=== PATIENT | female | born 1950 | race Caucasian/White ===

== ENCOUNTER → 2018-12-31 | Outpatient (CLI) | payer MEDICARE ==
[2018-12-31 13:24] LABS: BASO # 0.1 10^3/uL (0.0-0.2); BASO % 0.6 % (0.0-1.0); EOS # 0.2 10^3/uL (0.0-0.50); EOS % 1.2 % (0.0-3.0); HEMOGLOBIN 14.2 g/dl (12.0-15.5); LYMPH # 3.1 10^3/uL (1.5-4.5); LYMPH % 21.3 % (24.0-44.0); MEAN CORPUSCULAR HEMOGLOBIN 26.6 pg (27.0-33.0); MEAN CORPUSCULAR HGB CONC 30.9 g/dl (32.0-36.5); MEAN CORPUSCULAR VOLUME 86.3 fl (80.0-96.0); MONO % 7.1 % (0.0-5.0); NEUTROPHILS # 10.2 10^3/uL (1.8-7.7); NEUTROPHILS % 69.1 % (36.0-66.0); PLATELET COUNT, AUTOMATED 646 10^3/uL (150-450); RED BLOOD COUNT 5.33 10^6/uL (4.00-5.40); WHITE BLOOD COUNT 14.7 10^3/uL (4.0-10.0)
[2018-12-31 13:43] LABS: IMMUNOGLOBULIN M 55.3 MG/DL (40-230)
[2019-01-05 00:06] LABS: A1A FOR PHENOTYPE 266 mg/dL (90-200); ASPERGILLUS FLAVUS ABY Negative (Neg:<1:1); ASPERGILLUS FUMIGATUS ABY Negative (Neg:<1:1); ASPERGILLUS NIGER ABY Negative (Neg:<1:1)
== END ==
LOC: M SMT 10:42
PROVIDERS: ATTEND Internal Medicine Pulmonary Disease
DX: R91.8 Other nonspecific abnormal finding of lung field (principal)

== ENCOUNTER 2019-02-10 10:07 | Day surgery (SDC) | payer MEDICARE ==
[2019-02-10] VITALS (7 sets, daily range): BP systolic 87–98; BP diastolic 48–58; O2SAT 98–100
[~2019-02-10] VITALS: Ht 144.8 cm; Wt 38.1 kg
[~2019-02-10 10:07] MED LIST: ALEN70TA74 PO; ANOR1AER IN; BACL10TA2 PO; CALC600C3 PO; EZET10TA21 PO; FLUO20CA19 PO; HYDR200T3 PO; LEVO50TA5 PO; LR 1,000 ML IV ONE; MOBI4TAB PO; NEUR300C PO; WELL1000 PO
[2019-02-10] MEDS ORDERED: PARO30TA3 PO (11:05)
[2019-02-10] MEDS ORDERED: THROMBIN SOLN 20,000 UNITS KIT As Ordered ONE (11:39)
[2019-02-10] MEDS ORDERED: LIDOCAINE 4% TOPICAL SOLN 50 ML BTL As Ordered ONE (11:40)
[2019-02-10] MEDS ORDERED: LIDOCAINE 1% SDV INJ 30 ML VIAL As Ordered ONE (11:40)
[2019-02-10] MEDS ORDERED: CETACAINE SPRAY 5GM As Ordered ONE (11:40)
[2019-02-10] MEDS ORDERED: LIDOCAINE VISCOUS 2% SOLN 15ML UDC As Ordered ONE (11:40)
[2019-02-10] MEDS ORDERED: EPINEPHrine INJ 1 MG/ML 1ML AMP As Ordered ONE (11:40)
[2019-02-10] MEDS ORDERED: ONDANSETRON 4MG/2ML VIAL (J2405) As Ordered ONE (12:10)
[2019-02-10] MEDS ORDERED: ROCURONIUM BROMIDE 50 MG/5 ML VIAL As Ordered ONE (12:10)
[2019-02-10] MEDS ORDERED: fentaNYL 250 MCG/5 ML INJECTION (J3010) As Ordered ONE (12:10)
[2019-02-10] MEDS ORDERED: dexameTHASONE 4 MG/ML 1ML VIAL (J1100) As Ordered ONE (12:10)
[2019-02-10] MEDS ORDERED: PROPOFOL 200 MG/20 ML VIAL As Ordered ONE (12:10)
[2019-02-10] MEDS ORDERED: SUGAMMADEX SODIUM 500 MG/5 ML VIAL (BRIDION) As Ordered ONE (12:10)
[2019-02-10] MEDS ORDERED: MIDAZOLAM INJ 2 MG/2 ML VIAL (J2250) As Ordered ONE (12:10)
[2019-02-10] MEDS ORDERED: LIDOCAINE 2% INJ 100 MG/5 ML SDV (FOR ANES.) As Ordered ONE (12:10)
[2019-02-10] MEDS ORDERED: PHENYLephrine HCL 500 MCG/5 ML (100MCG/ML) SYRINGE (J2370) As Ordered ONE ×2 (12:11→12:20)
[2019-02-10] MEDS ORDERED: ePHEDrine SULFATE 25 MG/5 ML(5MG/ML) SYRINGE As Ordered ONE (12:11)
[2019-02-10] MEDS ORDERED: METOCLOPRAMIDE INJ 10MG/2ML VIAL (J2765) IV PRN (13:00)
[2019-02-10] MEDS ORDERED: LR 1,000 ML IV SCH (13:00)
[2019-02-10] MEDS ORDERED: fentaNYL 100 MCG/2 ML INJECTION (J3010) IV PRN (13:00)
[2019-02-10] MEDS ORDERED: ONDANSETRON 4MG/2ML VIAL (J2405) IV PRN (13:00)
[2019-02-10] MEDS ORDERED: PERCOCET 5MG/325MG TAB PO PRN (13:00)
--- NOTE | 2019-02-10 13:16 | RO ---
DATE OF PROCEDURE: 02/10/2019 PREOPERATIVE DIAGNOSES: Abnormal chest CT, bronchiectasis with likely rapid massive progressive fibrosis. POSTOPERATIVE DIAGNOSES: Abnormal chest CT, bronchiectasis with likely rapid massive progressive fibrosis. FINDINGS: Bronchiectatic airway. PROCEDURE: Bronchoscopy with transbronchial biopsies. PROCEDURALIST: Chris Ruvalcaba DO RESEARCH LABORATORY MANAGER: ANESTHESIA: General. Please refer to their records for details. SPECIMENS OBTAINED: 1. BAL of the right middle lobe, the superior basal segment of the right lower lobe and the lateral basal segment of the right lower lobe. 2. Transbronchial biopsies right upper lobe apical anterior and posterior segments, right middle lobe lateral and medial segments, right lower lobe superior basal, anterior lateral and posterior basal segments. No observed complications. ESTIMATED BLOOD LOSS: 5 mL. DESCRIPTION OF PROCEDURE: After informed consent was reviewed with the patient in the preoperative area, she was brought back to OR number 3. Anesthesia was initiated with an 8.5 endotracheal tube and the case was handed over to me. Time out was performed with two patient identifiers, confirming correct site, correct procedure. Cetacaine spray was used to anesthetize the airway and provide lubrication for the 1T190 bronchoscope. This was inserted into the trachea. Trachea was midline. Ophelia was sharp. There were minimal amounts of clear to white mucus in the airways. There was no thick or tenacious mucus. The right mainstem bronchus was normal except for banding. RB 1 through 3 had anatomic variation with the apical and anterior segments coming off together. There were no endobronchial lesions but there was significant banding and pitting. Right middle lobe RB 4 and 5 was normal without endobronchial lesions. There was pitting and banding. Superior basal and medial basal segments were normal without endobronchial lesions. RB 6 through 10 were normal after complete exam. The bronchoscope was then retracted into the left mainstem which was also normal. There was bronchiectatic segments on the left also. Quite a bit of banding and pitting. LB 1 through 10 was inspected and without endobronchial lesions. The bronchoscope was then inserted into the right middle lobe and bronchoalveolar lavage was performed with cloudy return of 30 mL. This was repeated in the superior basal segment and the lateral basal segment of the right lower lobe. I then performed transbronchial biopsies under fluoroscopy of the right middle lobe followed by the superior basal segment, medial basal segments, anterior lateral and posterior segments of the right lower lobe. In the right upper lobe, there was such fibrosis that the transbronchial biopsies did not extend very far. However, biopsies were taken of this area. After all biopsies were taken, hemostasis was assured. There was no evidence of ongoing bleeding. Bronchoscope was removed. Case was handed back over to anesthesia. Postprocedure chest x-ray is pending.
--- NOTE | 2019-02-10 13:19 | REP ---
Portable chest x-ray: Sitting AP view. History: Post bronchoscopic evaluation. No comparison imaging. Findings: There is extensive retraction, consolidation and volume loss the upper lobes bilaterally. Biapical pleural thickening is seen. There is an interstitial fibrosis pattern diffusely most pronounced in the bases. There is slight blunting of the right lateral pleural angle. There is no evidence of pneumothorax. Heart is not enlarged. Impression: No evidence of pneumothorax. Electronically Signed by Valdez Esparza MD 02/10/2019 01:10 P
[2019-02-10] MEDS ORDERED: LEVALBUTEROL 1.25 MG/0.5 ML CONCENTRATE NEB As Ordered ONE (13:41)
[2019-02-10] MEDS ORDERED: LEVALBUTEROL 1.25 MG/0.5 ML CONCENTRATE NEB INH ONE ×2 (14:00→15:00)
[2019-02-10 14:07] LABS: COLOR COLORLESS (COLORLESS); SOURCE BRON ALVEOLAR LAVAGE
[2019-02-10 14:08] LABS: APPEARANCE CLOUDY (CLEAR)
[2019-02-10] MEDS ORDERED: FUROSEMIDE 20 MG/2 ML VIAL (J1940) As Ordered ONE (15:57)
[2019-02-10 16:18] LABS: MONOCYTES/MACROPHAGES, BAL 4 %
[2019-02-10 16:33] LABS: ABG BASE EXCESS -0.5 (-2.0-2.0); ABG HCO3 26.7 MEQ/L (22.0-26.0); ABG O2 SATURATION 74.6 % (95.0-99.0); ABG PARTIAL PRESSURE CO2 55.3 mmHg (35.0-45.0); ABG STANDARD HCO3 23.6 MEQ/L (22.0-26.0); ABG TOTAL CO2 28.4 MEQ/L (23.0-31.0); ABG pH (ARTERIAL) 7.302 UNITS (7.350-7.450)
[2019-02-10 16:49] LABS: ABG PARTIAL PRESSURE O2 41.2 mmHg (75.0-100.0)
--- NOTE | 2019-02-10 16:55 | REP ---
Portable chest, 04:30 p.m., single AP view with the patient upright: Comparison is F 12:46 p.m. earlier today. There is markedly advanced fibrosis and cystic changes throughout both lungs, focally worse in the lung apices bilaterally. There is pleural thickening over the lung apices bilaterally. These findings are unchanged. There is no pneumothorax. The costophrenic angles are opacified bilaterally. This is nonspecific and could be from the lung fibrosis, pleural adhesions or small pleural fluid collections. Impression: No change from the study earlier today. No pneumothorax. Markedly advanced fibrosis and cystic changes bilaterally, particularly in the lung apices. Electronically Signed by Kye Zapata MD 02/10/2019 04:46 P
[2019-02-10] MEDS ORDERED: FUROSEMIDE 20 MG/2 ML VIAL (J1940) IV ONE (17:00)
[2019-02-10] MEDS ORDERED: CLOPIDOGREL 75 MG TAB PO ONE (17:15)
[2019-02-10] MEDS: ALBUTEROL SULFATE 2.5 MG/0.5 ML INH NEB SOLN NEB SCH ×2 (20:17→23:45)
[2019-02-10] MEDS ORDERED: EZETIMIBE 10 MG TAB (ZETIA) PO SCH (21:00)
[2019-02-10] MEDS ORDERED: SIMVASTATIN 10 MG TAB PO SCH (21:00)
[2019-02-10] MEDS: GABAPENTIN 300 MG CAP PO SCH (21:06)
[2019-02-11] VITALS (14 sets, daily range): BP systolic 98–127; BP diastolic 58–59; O2SAT 88–100
[2019-02-11] MEDS: ALBUTEROL SULFATE 2.5 MG/0.5 ML INH NEB SOLN NEB SCH ×2 (03:44→07:17)
--- NOTE | 2019-02-11 03:59 | HPE ---
DATE OF ADMISSION: 02/10/2019 I was called multiple times during her postprocedure course. She continued to have hypoxia, which improved as her mentation improved. It was noted that immediately postoperative, she was quite sedated, was not ventilating well on her own, but was able to be aroused. Without oxygen, her oxygen saturations went to 60%. With oxygen, she remained in the 90s. After an hour of nebulizing, incentive spirometry, and lung recruitment maneuvers, her oxygen saturation to 83% on room air. This correlated with tachycardia. The patient herself states she feels fine. She feels that she is at her baseline. She has no headache. She denies any chest discomfort. After another hour of observation and lung recruitment maneuvers, patient still had oxygen desaturations with removal of oxygen; therefore, arterial blood gas was obtained. At the time the arterial blood gas was obtained, she was not on oxygen and her oxygen saturation on the probe was reading 73%. The arterial blood gas at that time showed a pH of 7.30, pCO2 of 55, and PaO2 of 41. After arterial blood gas was taken, the oxygen was immediately administered. Oxygen saturation improved to 99-100% on 2 liters, and she has been at that level since that time. She has known hypotension. Her blood pressure has been above her outpatient value of 84/62. She was given a dose of Lasix by the anesthesiologist. It was determined because of her hypoxia, hypercarbia to keep her for monitoring, although she states that she feels fine. I have, therefore, admitted here to the progressive care unit (PCU) for continued respiratory monitoring. I believe the cause of this is likely hypoventilation postprocedure and with lung recruitment patient will improve. PLAN: Monitoring overnight. Continued efforts towards lung maneuvers. I have informed the on-call physician of her prolonged surgical stay. Patient may require oxygen at home as she was close to requiring it at baseline. If she is in her baseline stable state at the time of discharge and her oxygen is less than 88%, will provide her with a prescription for oxygen at that point in time. MALIA
[2019-02-11] MEDS ORDERED: LEVOTHYROXINE 50MCG TABLET (0.05MG) PO SCH (06:00)
[2019-02-11 06:03] LABS: ALBUMIN 2.7 GM/DL (3.2-5.2); ALT/SGPT 136 U/L (12-78); BILIRUBIN,TOTAL 0.2 MG/DL (0.2-1.0); BLOOD UREA NITROGEN 21 MG/DL (7-18); CALCIUM LEVEL 7.9 MG/DL (8.8-10.2); CARBON DIOXIDE LEVEL 33 MEQ/L (21-32); CHLORIDE LEVEL 106 MEQ/L (98-107); CREATININE FOR GFR 0.78 MG/DL (0.55-1.30); GLOMERULAR FILTRATION RATE > 60.0 (>45); GLUCOSE, FASTING 123 MG/DL (70-100); POTASSIUM SERUM 3.9 MEQ/L (3.5-5.1); SODIUM LEVEL 143 MEQ/L (136-145); TOTAL PROTEIN 6.9 GM/DL (6.4-8.2)
[2019-02-11 06:13] LABS: ABG BASE EXCESS 2.5 (-2.0-2.0); ABG HCO3 29.4 MEQ/L (22.0-26.0); ABG O2 SATURATION 98.1 % (95.0-99.0); ABG PARTIAL PRESSURE CO2 56.7 mmHg (35.0-45.0); ABG PARTIAL PRESSURE O2 116.1 mmHg (75.0-100.0); ABG STANDARD HCO3 26.7 MEQ/L (22.0-26.0); ABG TOTAL CO2 31.1 MEQ/L (23.0-31.0); ABG pH (ARTERIAL) 7.332 UNITS (7.350-7.450)
[2019-02-11] MEDS: GABAPENTIN 300 MG CAP PO SCH (08:33)
[2019-02-11] MEDS ORDERED: PARoxetine 20 MG TAB PO SCH (09:00)
[2019-02-11] MEDS ORDERED: HYDROXYCHLOROQUINE 200 MG TAB PO SCH (09:00)
--- NOTE | 2019-02-11 10:04 | IPN ---
DATE OF VISIT: 02/11/2019 I saw Elaine Martinez here this morning. She feels well. She has no new complaints. She is eating and drinking well. T-max overnight 98.4, blood pressure 120 systolic, heart rate 79, with a sinus mechanism respiratory rate 16 to 18 without accessory muscle use. HEENT: Otherwise normocephalic, atraumatic. Pupils react. Neck: Supple. Trachea is midline. Chest shows diminished, but symmetric expansion. There are coarse expiratory crackles bilaterally with some egophony at the right apex. There is some moist inspiratory squeak, especially in the mid zones, right greater than left. Cardiac exam is regular without gallop, murmur or rub. Peripheral pulses palpable, no edema. Abdomen thin, soft and nontender with normoactive bowel sounds. No organomegaly or masses. Extremities: Without cyanosis or clubbing. Neurologic: She is awake, alert and appropriate. Psychiatric: Normal affect. Blood gas done this morning on 1 liter nasal cannula shows a pH of 7.332, pCO2 of 56.7, pO2 116.1. Sodium 143, potassium 3.9, chloride 106, CO2 33, BUN 21, creatinine 0.78. She was ambulating on room air and drops to 78%. On 1 liter, she drops to 87% to 88%, but on 2 liters nasal cannula, stays at 91-93%. Oxygen was ordered yesterday through [facility]. IMPRESSION: 1. Hypoxemic respiratory failure. 2. Diffuse interstitial disease status post bronchoscopy yesterday. 3. Bronchiectasis. RECOMMENDATIONS: At this point, she is stable for discharge. She was a 23-hour observation. In talking further with her, my suspicion is she has probably has had issues longer at home than she was willing to admit, especially in view of her baseline CO2 retention. At this point, will continue her home regimen. It is arranged for 2 liters nasal cannula oxygen to be worn with any activity and with sleep. She has a scheduled appointment with Dr. Ruvalcaba in the office next week for results of her bronchoscopy.
== END 2019-02-11 13:06 | disposition home or self-care (01) ==
LOC: M SDC 10:07 → M PCU 17:28 → M SDC 02-11 13:06
PROVIDERS: ATTEND Internal Medicine Pulmonary Disease
DX: R91.8 Other nonspecific abnormal finding of lung field (principal); J47.9 Bronchiectasis, uncomplicated; J84.10 Pulmonary fibrosis, unspecified; I10 Essential (primary) hypertension; E03.9 Hypothyroidism, unspecified; K58.9 Irritable bowel syndrome, unspecified; M81.0 Age-related osteoporosis without current pathological fracture; M50.30 Other cervical disc degeneration, unspecified cervical region; M19.90 Unspecified osteoarthritis, unspecified site; F17.210 Nicotine dependence, cigarettes, uncomplicated; R01.1 Cardiac murmur, unspecified; Z79.899 Other long term (current) drug therapy; Z98.51 Tubal ligation status
CPT/HCPCS: 31624; 31628; 36415; 71045; 76000; 80053; 82803; 87070; 87102; 87116; 87205; 87206; 88108; 88305; 88313; 89051; 94640; J1100; J2250; J2370; J2405; J3010